=== PATIENT | female | born 1950 | race African-American/Black ===

== ENCOUNTER 2018-05-20 22:21 | Inpatient (IN) ==
[2018-05-20] MEDS ORDERED: NS 1,000 ML ONE (23:37)
[2018-05-20] MEDS ORDERED: NS 1,000 ML IV ONE (23:44)
[2018-05-20] MEDS ORDERED: NARCAN IV ONE ×2 (23:56→23:58)
[2018-05-21] MEDS ORDERED: LEVOPHED 8 MG in D5 1/2 NS 250 ML IV SCH (01:15)
[2018-05-21 01:40] LABS: BASO# 0.02 X1000 (0.0-0.2); BASO% 0.2 % (0.0-0.8); EOS# 0.18 X1000 (0.0-0.7); EOS% 1.5 % (0.0-10.0); HEMATOCRIT 31.2 % (37.0-47.0); HEMOGLOBIN 10.1 g/dL (12.0-16.0); IMM GRAN# 0.11 X1000 (0.0-0.04); IMM GRAN% 0.9 % (0.0-0.5); LYMPH# 1.45 X1000 (1.2-3.4); LYMPH% 11.8 % (20.5-51.1); MCH 31.9 PG (27-31); MCHC 32.4 g/dL (33-37); MCV 98.4 FL (81-99); MONO# 0.69 X1000 (0.11-0.59); MONO% 5.6 % (1.7-9.3); MPV 11.3 FL (7.4-10.4); NEUT# 9.87 X1000 (1.4-6.5); PLT 154 X1000 (130-400); RBC 3.17 XMIL (4.2-5.4); RDW 14.4 % (11.5-14.5); WBC 12.32 X1000 (4.8-10.8)
--- NOTE | 2018-05-21 01:50 | PROVIDER DOCUMENTATION ---
HPI-Neurological Disorder - General Chief Complaint: Altered Mental Status Stated Complaint: ams Time Seen by Provider: 05/20/18 22:36 Allergies/Adverse Reactions: Patient Allergies Allergy/AdvReac Type Severity Reaction Status Date / Time No Known Allergies Allergy Verified 05/21/18 04:30 Home Medications: Home Medication List Medication Instructions Recorded Confirmed Last Taken Type Unobtainable [Home Meds 05/21/18 05/21/18 Unknown History Unobtainable] - History of Present Illness-Neuro Nature of Presenting Problem: HPI: Pt reports by EMS for AMS. She has a PMH of ESRD on HD , she was scheduled to have her peritoneal dialysis port changed 05/21/18. Her boyfriend states that she was acting normally today this am, he came home from work and she was acting normally, he went to sleep and when he woke up she was acting strangely, did not know her and was having AMS. Severity: reports: moderate Onset/Duration: reports: this afternoon Approximate time patient was last seen normal?: 22:00 Character of Altered Mental Status: reports: disoriented, confused, combative Any recent trauma/injury?: reports: none Character of Deficits: reports: altered sensation. denies: new weakness, impaired swallowing New weakness or altered sensation location:: reports: none Cognitive Baseline: poor alertness Associated Symptoms: reports: denies symptoms Similar Symptoms Previously?: No Recently seen or treated by another doctor?: No Review of Systems - Adult - REVIEW OF SYSTEMS - ADULT Constitutional: reports: no symptoms reported Eyes: reports: no symptoms reported Ears, Nose, Mouth & Throat: reports: no symptoms reported Cardiovascular: reports: no symptoms reported Respiratory: reports: no symptoms reported Gastrointestinal: reports: no symptoms reported Genitourinary: reports: no symptoms reported Musculoskeletal: reports: no symptoms reported Integumentary: reports: no symptoms reported Neurological: reports: see HPI Psychiatric: reports: no symptoms reported Endocrine: reports: no symptoms reported Hematologic/Lymphatic: reports: no symptoms reported Allergic/Immunologic: reports: no symptoms reported All Other Systems: Reviewed and Negative Past History - Adult - PAST MEDICAL HISTORY-ADULT Review of Records: reports: Old Records Reviewed, Nursing Assessment Review, Medications Reviewed, Social history reviewed & non-contributory. Major Childhood Illnesses: reports: denies history Cardiovascular: reports: A-Fib, CHF, HTN Respiratory: reports: COPD, pneumonia (HIV related) Gastrointestinal: reports: denies history Obstetrical/Gynecological: reports: denies history Genitourinary: reports: dialysis, kidney disease Musculoskeletal: reports: chronic pain Neurological: reports: denies history Endocrine/Immune: reports: HIV/AIDS Other Conditions: reports: denies history - PRIOR SURGERIES/PROCEDURES Surgical/Procedure History: reports: appendectomy, indwelling device (vasc dialysis), bowel surgery - IMMUNIZATION STATUS Childhood Immunizations: See Nurse Assessment Flu Vaccine: See Nurse Assessment - FAMILY HISTORY Family History: reviewed, not pertinent Physical Exam- Neurological - Physical Exam-Neuro Initial Vital Signs Reviewed: Yes General Appearance: lethargic, slow to respond Eye Exam: left eye: PERRL HENMT: moist mucous membranes Head Injury: no evidence of injury Neck: full range of motion Respiratory: chest non-tender, lungs clear, normal breath sounds. negative: crackles, rales, rhonchi Cardiovascular: normal peripheral pulses, tachycardia. 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 Exam: other (unable to cooperate with neuro exam) Coordination/Gait: other (unable to cooperate with neuro exam) Motor/Sensory: other (unable to cooperate with neuro exam) Neurologic: other (unable to cooperate with neuro exam) Integumentary: normal turgor, warm/dry Psych/Mental Status: disoriented x 3 - Glascow Coma Scale Best Eye Response: (3) open to voice Best Verbal Response: (4) confused conversation Best Motor Response: (5) localizes to pain (11) Progress - PLAN OF CARE/RESULTS Progress/Plan/Lab Results: Laboratory Results - last 24 hr 05/20/18 05/20/18 05/20/18 22:26 23:30 23:30 WBC 12.32 H RBC 3.17 L Hgb 10.1 L Hct 31.2 L MCV 98.4 MCH 31.9 H MCHC 32.4 L RDW Std Deviation 14.4 Plt Count 154 MPV 11.3 H Immature Gran % (Auto) 0.9 H Neut % (Auto) 80.0 H Lymph % (Auto) 11.[address] [place] % (Auto) 5.6 Eos % (Auto) 1.5 Baso % (Auto) 0.2 Immature Gran # (Auto) 0.11 H Neut # (Auto) 9.87 H Lymph # (Auto) 1.45 [facility] # (Auto) 0.69 H Eos # (Auto) 0.18 Baso # (Auto) 0.02 Sodium 130 L Potassium 4.2 Chloride 86 L Carbon Dioxide 19 L Anion Gap 25 BUN 54 H Creatinine 8.0 H Estimated GFR/1.73 m2 6 BUN/Creatinine Ratio 7 Glucose 44 L POC Glucose 500 H Calculated Osmolality 273 Calcium 8.6 L Magnesium Total Bilirubin 0.72 AST 33 H ALT 19 Alkaline Phosphatase 111 H Ammonia Total Protein 6.7 Albumin 1.6 L Globulin 5.1 Albumin/Globulin Ratio 0.3 Plasma Lactate Blood Type Confirm 05/20/18 05/20/18 05/20/18 23:30 23:30 23:30 WBC RBC Hgb Hct MCV MCH MCHC RDW Std Deviation Plt Count MPV Immature Gran % (Auto) Neut % (Auto) Lymph % (Auto) [facility] % (Auto) Eos % (Auto) Baso % (Auto) Immature Gran # (Auto) Neut # (Auto) Lymph # (Auto) [facility] # (Auto) Eos # (Auto) Baso # (Auto) Sodium Potassium Chloride Carbon Dioxide Anion Gap BUN Creatinine Estimated GFR/1.73 m2 BUN/Creatinine Ratio Glucose POC Glucose Calculated Osmolality Calcium Magnesium 1.7 Total Bilirubin AST ALT Alkaline Phosphatase Ammonia Total Protein Albumin Globulin Albumin/Globulin Ratio Plasma Lactate 8.7 H Blood Type Confirm A POSITIVE 05/20/18 05/21/18 23:40 00:20 WBC RBC Hgb Hct MCV MCH MCHC RDW Std Deviation Plt Count MPV Immature Gran % (Auto) Neut % (Auto) Lymph % (Auto) [facility] % (Auto) Eos % (Auto) Baso % (Auto) Immature Gran # (Auto) Neut # (Auto) Lymph # (Auto) [facility] # (Auto) Eos # (Auto) Baso # (Auto) Sodium Potassium Chloride Carbon Dioxide Anion Gap BUN Creatinine Estimated GFR/1.73 m2 BUN/Creatinine Ratio Glucose POC Glucose 234 H D Calculated Osmolality Calcium Magnesium Total Bilirubin AST ALT Alkaline Phosphatase Ammonia 59 H Total Protein Albumin Globulin Albumin/Globulin Ratio Plasma Lactate Blood Type Confirm Orders Category Date Time Status Admit - [facility] Routine AdmDCTranf 05/21/18 02:35 Active Activity - Strict Bedrest ORDERED Care 05/21/18 02:35 Active Intake and Output-Strict ORDERED Care 05/21/18 02:35 Active Misc. NRSG Communication Order DIRECTED Care 05/21/18 02:39 Completed Nursing- MD Consult Request ROUTINE Care 05/21/18 02:34 Active Nursing- Obtain EKG once Care 05/20/18 23:58 Active Vital Signs Order Q1H Care 05/21/18 02:35 Active Z-Document. for Tele Applied ORDERED Care 05/21/18 02:36 Active Physician/Provider Consults Routine Cons 05/21/18 08:00 Ordered Physician/Provider Consults Routine Cons 05/21/18 08:00 Ordered NPO Diet 05/21/18 02:36 Active CHEST-1 VIEW [RAD] Stat Exams 05/20/18 23:45 Completed AMMONIA [CHEM] Stat Lab 05/21/18 00:20 Completed BASIC METABOLIC PANEL [CHEM] Routine Lab 05/22/18 06:00 Ordered BLOOD CULTURE [BLDCUL] Stat Lab 05/21/18 00:15 Received CBC WITH DIFF [HEME] Routine Lab 05/22/18 06:00 Ordered CBC WITH ELECTRONIC DIFF [HEME] Stat Lab 05/21/18 00:00 Completed COMPREHENSIVE METABOLIC PANEL [CHEM] Stat Lab 05/21/18 00:00 Completed LACTATE, PLASMA [CHEM] Stat Lab 05/21/18 00:00 Completed PROTIME WITH INR [COAG] DAILY Lab 05/21/18 05:15 Completed PROTIME WITH INR [COAG] DAILY Lab 05/22/18 06:00 Ordered PROTIME WITH INR [COAG] DAILY Lab 05/23/18 06:00 Ordered PROTIME WITH INR [COAG] DAILY Lab 05/24/18 06:00 Ordered PROTIME WITH INR [COAG] DAILY Lab 05/25/18 06:00 Ordered TSH Routine Lab 05/21/18 05:15 Completed UA [URINALYSIS W/POSS RFLX CULT] [URINALYSIS] Stat Lab 05/20/18 23:45 Uncollected 0.9% Sodium Chloride Inj [Ns] 1,000 ml Med 05/20/18 23:37 Discontinued .ROUTE As Directed 0.9% Sodium Chloride Inj [Ns] 1,000 ml Med 05/20/18 23:44 Discontinued IV 999 mls/hr Acetaminophen [Tylenol] Med 05/21/18 02:35 Active 650 mg PO Q6H PRN PRN Aspirin EC Med 05/21/18 09:00 Active 81 mg PO DAILY Calcitriol [Rocaltrol] Med 05/21/18 09:00 Active 0.5 microgm PO MoWeFr@0900 Calcium Acetate [Phoslo] Med 05/21/18 07:00 Active 1,334 mg PO TID AC Dextrose 5%-0.45% NaCl Inj [D5 /2 Ns] 250 ml Med 05/21/18 01:15 Active Norepinephrine [Levophed] 8 mg IV As Directed Furosemide [Lasix] Med 05/21/18 09:00 Discontinued 160 mg PO BID Mag Sulf/Vitamin B Comp W-C/Zn [Vicon-C] Med 05/21/18 09:00 Active 1 each PO DAILY Metoprolol [Lopressor] Med 05/21/18 08:00 Active 25 mg PO Q6HR Metoprolol [Lopressor] Med 05/21/18 02:32 Discontinued 5 mg IV NOW ONE Naloxone [Narcan] Med 05/20/18 23:56 Discontinued 0.4 mg IV NOW ONE Naloxone [Narcan] Med 05/20/18 23:58 Discontinued 0.4 mg IV NOW ONE Ondansetron [Zofran] Med 05/21/18 02:35 Active 4 mg IV Q4H PRN PRN Piperacillin/Tazobactam [Zosyn] 2.25 gm Med 05/21/18 02:32 Discontinued 0.9% Sodium Chloride Inj [Ns] 50 ml IV NOW Polyethylene Glycol 3350 [Miralax] Med 05/21/18 02:39 Active 17 gm PO DAILY PRN PRN Sodium Bicarbonate Med 05/21/18 09:00 Active 1,300 mg PO BID Warfarin [Coumadin] Med 05/21/18 21:00 Pending 7.5 mg PO QHS Telemetry [OM.EQ] Routine Oth 05/21/18 02:35 Active EKG [EKG] Routine Ther 05/21/18 08:00 Draft EKG [EKG] Stat Ther 05/21/18 02:52 Draft Transfer/Admit Order [TRANSFER] Routine Transfer 05/21/18 02:39 Completed at 15:39 called to code of patient, reportedly patient began to drop her HR during an EKG and then into asystole, pulseless. Arrived to find pt on venti mask, changed to amu bag with better oxygen delivery and jaw thrust while directing atropine and epi to be given as chest compressions had begun by staff. No pulse by me. Epi at 1540, atropine at 15:42 no pulse at 15:43, has pulse at 15:44 Dr Daniel arrived and pulse noted by him Result Diagrams: 05/21/18 15:48 05/21/18 15:48 - CHANGE OF SHIFT REPORT (ED Provider) Report Given and Care Transferred to:: [facility] Time of Transfer: 01:55 Procedures - INTUBATION Airway Evaluation: Obese Intubation Method: orotracheal Equipment: ETT Tube Size (cm): 7.5 Pretreated with 100% Oxygen?: Yes Breath Sounds after Intubation: equal ETT Primary Tube Confirmation: Capnometry CO2 Change, Direct Visualization, Chest Rise and Fall, Tube placement verified on XRAY, Tube Repositioned, Placement re-confirmed with CXR after reposition Intubation Complications: no complications Vent Settings: See Respiratory Therapy Notes Departure - Departure Date of Disposition Decision: 05/21/18 Time of Disposition Decision: :55 DIAGNOSIS: Altered mental status Disposition: ADMITTED INPATIENT 09 Certified Medical Emergency: Emergent Condition: Fair - Critical Care Note This patient required my direct & personal management of CC.: No Attestation - Physician/ DONNELL Attestation Patient care was provided by Advanced Practice Provider:: No The physician spent face to face time with patient:: Yes Advanced Practice Provider documentation review:: Supervising physician onsite and consulted in the evaluation and care of this patient. The physician did have a face to face encounter with the patient.
[2018-05-21] MEDS ORDERED: LOPRESSOR IV ONE (02:32)
[2018-05-21] MEDS ORDERED: ZOSYN 2.25 GM in NS 50 ML IV ONE (02:32)
[2018-05-21 02:33] LABS: ALB/GLOB RATIO 0.3; ALBUMIN 1.6 g/dL (3.5-5.0); CALCIUM 8.6 mg/dL (8.8-10.2); POTASSIUM 4.2 mmol/L (3.5-5.1); TOTAL BILIRUBIN 0.72 mg/dL (0.20-1.00); TOTAL PROTEIN 6.7 g/dL (6.3-8.3)
[2018-05-21] MEDS ORDERED: ZOFRAN IV PRN (02:35)
[2018-05-21] MEDS ORDERED: TYLENOL PO PRN (02:35)
[2018-05-21] MEDS ORDERED: MIRALAX PO PRN (02:39)
[2018-05-21] MEDS ORDERED: CORDARONE 360 MG/D5W 360 MG/200 ML IV.SOLN IV ONE (05:21)
[2018-05-21] MEDS ORDERED: NS 1,000 ML IV ONE (06:38)
[2018-05-21 07:10] LABS: ALLEN TEST NO; BE -4.1 mmoll (-3.0-3.0); BLOOD TYPE ARTERIAL; HCO3-(ACT) 21.7 mmoll (20.0-26.0); METHB 0.9 % (0.0-1.5); O2(CT) 14.2 mL/dL (15.0-23.0); O2HB 94.8 % (95.0-99.0); PCO2(98.6) 30 mmHg (35-45); PO2(98.6) 77 mmHg (60-100); SAMPLE BLOOD; THB 10.6 g/dL (11.5-17.4); pH(98.6) 7.42 (7.35-7.45)
[2018-05-21 07:11] LABS: MODALITY ROOM AIR
[2018-05-21 07:13] LABS: CHLORIDE 90 mmol/L (98-107); POTASSIUM 3.6 mmol/L (3.5-5.1); SODIUM 130 mmol/L (136-145)
[2018-05-21 07:14] LABS: AGAP 22; BUN 47 mg/dL (8-22); COSMO 284; CREATININE 7.1 mg/dL (0.5-0.9); GLUCOSE 287 mg/dL (70-104); TCO2 18 mmol/L (25-35)
[2018-05-21 07:15] LABS: CALCIUM 7.9 mg/dL (8.8-10.2)
[2018-05-21 07:23] LABS: PROTIME > 120.0 Seconds (11.0-16.0)
--- NOTE | 2018-05-21 07:23 | EKG Report ---
Test Performed on : 05/21/2018 06:42:47 AM Test Reason : chest pain Blood Pressure : / mmHG Vent. Rate : 159 BPM Atrial Rate : 082 BPM P-R Int : 000 ms QRS Dur : 100 ms QT Int : 304 ms P-R-T Axes : 000 075 194 degrees QTc Int : 494 ms Atrial fibrillation. with rapid ventricular response. with premature ventricular or aberrantly conduc cuong complexes. Low voltage QRS Nonspecific ST and T wave abnormality Abnormal ECG When compared with ECG of 21-MAY-2018 06:42, (Unconfirmed) Previous ECG has undetermined rhythm, needs review Unconfirmed Result
[2018-05-21 07:25] LABS: INR > 16.00
--- NOTE | 2018-05-21 07:27 | EKG Report ---
Test Performed on : 05/21/2018 05:57:35 AM Test Reason : VT Blood Pressure : / mmHG Vent. Rate : 173 BPM Atrial Rate : 163 BPM P-R Int : 000 ms QRS Dur : 102 ms QT Int : 282 ms P-R-T Axes : 000 054 200 degrees QTc Int : 478 ms Atrial fibrillation. with rapid ventricular response. Low voltage QRS Nonspecific ST and T wave abnormality Abnormal ECG When compared with ECG of 21-MAY-2018 02:54, (Unconfirmed) No significant change was found Confirmed by Ngoc RENEE, Yusef Kurtz ([id number]) on 05/22/2018 7:05:52 PM
--- NOTE | 2018-05-21 07:27 | EKG Report ---
Test Performed on : 05/21/2018 02:54:04 AM Test Reason : rapid heart rate Blood Pressure : / mmHG Vent. Rate : 153 BPM Atrial Rate : 178 BPM P-R Int : 000 ms QRS Dur : 104 ms QT Int : 338 ms P-R-T Axes : 000 066 173 degrees QTc Int : 539 ms Atrial fibrillation. with rapid ventricular response. with premature ventricular or aberrantly conduc cuong complexes. Low voltage QRS Nonspecific ST and T wave abnormality Abnormal ECG When compared with ECG of 07-APR-2018 20:15, (Unconfirmed) QRS duration has decreased Nonspecific T wave abnormality, improved in Inferior leads Confirmed by Ngoc RENEE, Yusef Kurtz ([id number]) on 05/22/2018 7:01:48 PM
[2018-05-21] MEDS ORDERED: ALBUMIN 25% IV SCH (07:37)
--- NOTE | 2018-05-21 07:38 | Diag Imaging Result Doc PS360 ---
EXAM: CHEST-1 VIEW 05/20/2018 HISTORY: ams TECHNIQUE: AP portable at 1201 COMMENT: There is cardiomegaly. The appearance the chest has not changed significantly since 03/28/2018. IMPRESSION: Stable chest. Electronically signed by Devon Caceres 05/21/2018 7:35 AM
[2018-05-21] MEDS ORDERED: NEO-SYNEPHRINE 50 MG in NS 250 ML IV SCH (07:45)
[2018-05-21] MEDS ORDERED: LOPRESSOR PO SCH (08:00)
[2018-05-21] MEDS ORDERED: VITAMIN K 10 MG in NS 50 ML IV ONE (08:08)
[2018-05-21] MEDS ORDERED: CORDARONE IV ONE (08:35)
[2018-05-21] MEDS ORDERED: ROCALTROL PO SCH (09:00)
[2018-05-21] MEDS ORDERED: ASPIRIN EC PO SCH (09:00)
[2018-05-21] MEDS ORDERED: LASIX PO SCH (09:00)
[2018-05-21] MEDS ORDERED: SODIUM BICARBONATE PO SCH (09:00)
[2018-05-21] MEDS ORDERED: VICON-C PO SCH (09:00)
[2018-05-21 09:18] LABS: INR > 16.00; PROTIME > 120.0 Seconds (11.0-16.0); PTT > 215.0 Seconds (22.3-41.8)
[2018-05-21] MEDS ORDERED: LOPRESSOR IV SCH (09:45)
[2018-05-21] MEDS ORDERED: TAZIDIME 1 GM in NS 50 ML IV ONE (10:08)
[2018-05-21] MEDS ORDERED: VANCOMYCIN IV PER PHARMACY MISC SCH (10:15)
[2018-05-21] MEDS ORDERED: MERREM 500 MG in NS 50 ML IV SCH (10:15)
[2018-05-21 10:21] LABS: BASO# 0.03 X1000 (0.0-0.2); BASO% 0.2 % (0.0-0.8); EOS# 0.12 X1000 (0.0-0.7); EOS% 0.8 % (0.0-10.0); HEMATOCRIT 30.5 % (37.0-47.0); HEMOGLOBIN 9.9 g/dL (12.0-16.0); IMM GRAN# 0.13 X1000 (0.0-0.04); IMM GRAN% 0.9 % (0.0-0.5); LYMPH# 2.18 X1000 (1.2-3.4); LYMPH% 14.4 % (20.5-51.1); MCH 32.2 PG (27-31); MCHC 32.5 g/dL (33-37); MCV 99.3 FL (81-99); MONO# 0.94 X1000 (0.11-0.59); MONO% 6.2 % (1.7-9.3); MPV 11.1 FL (7.4-10.4); NEUT# 11.77 X1000 (1.4-6.5); NEUT% 77.5 % (42.2-75.2); PLT 184 X1000 (130-400); RBC 3.07 XMIL (4.2-5.4); RDW 14.6 % (11.5-14.5); WBC 15.17 X1000 (4.8-10.8)
[2018-05-21] MEDS ORDERED: NS 1,000 ML IV SCH (10:30)
[2018-05-21] MEDS ORDERED: VANCOMYCIN 1 GM/NS 1 GM/250 ML IVPB IV ONE (10:45)
[2018-05-21] MEDS ORDERED: LOPRESSOR IV PRN (10:49)
--- NOTE | 2018-05-21 10:54 | PROGRESS NOTE ---
DATE: 05/21/2018 SUBJECTIVE: This morning, Ms. Nagy refers to be hurting all over including the calf and her abdomen. She got admitted early this morning because of altered mental status and also because she was told that her catheter needed to be changed. Upon reviewing her fluid analysis from the 7th of this month, which was just 2 days ago, she did have a white cell count of 1720, predominantly 95% neutrophils, which would be consistent with peritoneal dialysis related peritonitis. OBJECTIVE: General: Ms. Nagy is a 68-year-old, female. She is in bed. She is not in any cardiopulmonary distress. HEENT: Mucosa is slightly dry. Anicteric. Acyanotic. Neck: Supple. Chest: Good air entry bilaterally. There were no crepitations. No rhonchi. Cardiovascular: Tachycardic. Irregularly irregular. No murmurs, no rubs, no gallops. Abdomen: Soft. It is minimally tender all over. There is rebound tenderness all over the abdominal wall. There is a PD catheter in place. There is a right-sided inguinal central line catheter. Extremities: No pedal edema. [employer] NET OR TRAP: The patient is awake, alert. Follows basic commands. Laboratory Data: WBC is 12.23, hemoglobin is 10.1, platelet count 154,000. Chemistry is also reviewed. Sodium is 130, potassium is 3.6, chloride is 90, bicarb is 18, creatinine is 7.1. Patient's plasma lactate is 5.5. A chest x-ray this morning shows a stable chest. Cardiomegaly appearance has not really changed. Of note, Ms. Nagy was discharged from this hospital on 04/05/2018 after she went into atrial fibrillation with RVR and was cardioverted. EKG this morning still shows atrial fibrillation with rapid ventricular response. Patient is currently on an amiodarone drip. ASSESSMENT: 1. Septic shock, likely due to peritoneal dialysis related peritonitis. I have started the patient on ceftazidime and vancomycin. Pending nephrology, further recommendations on this. 2. Peritoneal dialysis related peritonitis. The patient has been started on antibiotics. I think she would eventually need the peritoneal dialysis catheter removed and transition probably now to hemodialysis. We will defer renal replacement therapy to nephrology. 3. Endstage renal disease. 4. Lactic acidosis secondary to septic shock. We will start the patient on a very gentle hydration until the patient is seen by nephrology. 5. Atrial fibrillation with rapid ventricular response. The patient is in atrial fibrillation. She is currently on amiodarone drip. There is a consult for cardiology to see the patient. I think this is being driven by the ongoing sepsis. 6. Supratherapeutic INR. This is due to Coumadin therapy. The patient is getting 2 units of fresh frozen plasma and we will also give her intravenous 1 time dose of vitamin K and repeat her coagulations later today. PLAN: In general, I think Ms. Nagy is critically sick. She is in septic shock secondary to PD related peritonitis. We started her on IV antibiotics. Blood cultures have been done. We will start her on also low-dose IV fluids and wait on further recommendations from cardiology and nephrology. The patient is ICU hold. Critical time spent is 45 minutes. cc: Alli Mancini MD MTDD
[2018-05-21] MEDS ORDERED: CORDARONE 540 MG in D5W 289.2 ML IV ONE (11:21)
--- NOTE | 2018-05-21 11:24 | GENERAL SURGERY CONSULTATION ---
DATE: 05/21/2018 SUBJECTIVE: The patient was admitted overnight for worsening mental status, abdominal pain, leg pain, and plans for removal of her peritoneal dialysis catheter. It is felt she has spontaneous bacterial peritonitis. She had a paracentesis with fluid analysis 2 days ago showing a white cell count of 1720 with 95% neutrophils. Upon arrival to the ER, she has been quite tachycardic in atrial fibrillation and has been hypotensive as well, now on 1 pressor, potentially requiring 2 pressors, and I am asked to evaluate her for removal of peritoneal dialysis catheter as well as placement of a central line and eventual placement of a tunneled dialysis catheter. PAST MEDICAL HISTORY: End-stage renal disease, heart disease, HIV positive, chronic anemia, arthritis. PAST SURGICAL HISTORY: Laparoscopic peritoneal dialysis catheter placement, hemorrhoidectomy. ALLERGIES: No known drug allergies. FAMILY HISTORY: Heart disease, hypertension, chronic kidney disease. SOCIAL HISTORY: She drinks alcohol occasionally and is a former smoker. HOME MEDICATIONS: Home medications are not available, and the patient cannot tell me at this time. REVIEW OF SYSTEMS: Unobtainable. PHYSICAL EXAMINATION: Vital Signs: Temperature 98.1, pulse 130s to 150s. Blood pressure is systolic 104 to 120s. O2 sat 95% to 96%. Respiratory rate 21 to 26. General: She is awake and alert but confused. HEENT: Normocephalic, atraumatic. Extraocular muscles intact. Pupils equal, round, reactive to light. Sclerae anicteric. Dry mucous membranes. Neck: Supple. No thyromegaly. Cardiovascular: Tachycardic, irregular. Respiratory: Bilateral breath sounds. No work of breathing. Gastrointestinal: Soft. Mildly tender all over. No rebound or guarding. There is no erythema around her dialysis catheter. Extremities: No clubbing, cyanosis, or edema. Skin: Warm and dry. No rash. Lymphatic: No cervical, supraclavicular, or periumbilical lymph nodes appreciated. LABORATORY: White cell count 15,000, hemoglobin 9.9, hematocrit 30, platelet count 184,000. INR greater than 16, PTT greater than 215. pH 7.4, pCO2 of 30, PaO2 of 77, bicarb 21.7, base deficit negative for lactate 3.5. Sodium 130, potassium 3.6, chloride 90, CO2 18, BUN 47, creatinine 7.1, glucose 287, calcium 7.9, ammonia level 59, AST 33, ALT 19, alkaline phosphatase 111, total bilirubin 0.7, plasma lactate 5.5, down from 8.7. IMAGING: Chest x-ray shows cardiomegaly but, otherwise, no infiltrates. ASSESSMENT AND PLAN: A 68-year-old female with spontaneous bacterial peritonitis, atrial fibrillation, tachycardia, hemodynamic instability with hypotension. I will go ahead and place a central line at the bedside now in the right femoral vein. She is going to be getting FFP today to try to correct her INR and, when this is to an acceptable level, we will remove her peritoneal dialysis catheter in the operating room. Future dialysis catheter will be placed as needed. cc: Erick Galicia MD
[2018-05-21] MEDS: PHOSLO PO SCH ×2 (12:15→12:16)
--- NOTE | 2018-05-21 14:28 | CONSULTATION ---
DATE OF CONSULTATION: 05/21/2018 IMPRESSION: 1. Atrial fibrillation with rapid ventricular rate. Developing in setting of sepsis felt to be related to peritonitis related to patient's peritoneal dialysis. 2. Previous atrial fibrillation in the past. 3. Severe nonischemic cardiomyopathy. 4. End-stage renal disease requiring hemodialysis. 5. Mild coronary atherosclerosis by previous coronary angiography. Severe nonischemic cardiomyopathy. 6. End-stage renal disease requiring hemodialysis via peritoneal dialysis. 7. Hypercoagulability, probably related to patient's sepsis. 8. Hypertension. 9. Hyperlipidemia. RECOMMENDATIONS: 1. Continue intravenous amiodarone and provide loading dose. 2. Utilize metoprolol as needed for persistent excess tachycardia. 3. Follow up echocardiography once heart rate better controlled. 4. Treat for sepsis and peritonitis as you are doing. HISTORY: This 68-year-old, -Citizen Of [place] female with past history of previous atrial fibrillation in the past, severe nonischemic cardiomyopathy, end-stage renal disease requiring chronic hemodialysis via peritoneal dialysis and hypertension was admitted with recent abdominal pain and confusion. She has been found to have evidence of peritonitis and sepsis. She was in atrial fibrillation with rapid ventricular rate on presentation and has been started on intravenous amiodarone. She had persistent tachycardia and the summer nanny was consulted. The patient has limited recall of recent symptoms. She presently relates that she is feeling fine. Her family indicates that she complained of abdominal pain and weakness. She is not aware of her atrial fibrillation. There are no palpitations. There has been no angina. In the emergency room, she has received intravenous fluid resuscitation, intravenous amiodarone, and intravenous pressors trying to support her blood pressure, as she was hypotensive. Intravenous amiodarone has been initiated without bolus as well. PAST MEDICAL HISTORY: 1. End-stage renal disease requiring hemodialysis via peritoneal dialysis approach. 2. Severe nonischemic cardiomyopathy. Left ventricular ejection fraction 25%-30% in the past. 3. Previous atrial fibrillation. Patient was in sinus rhythm in February,, in our records. 4. Hypertension. 5. Hyperlipidemia. 6. Previous cerebrovascular accident. 7. Reported human immunodeficiency virus infection. 8. Obesity. PAST SURGICAL HISTORY: Appendectomy and placement of peritoneal dialysis catheter. ALLERGIES: She has no known drug allergies. MEDICATIONS PRIOR TO ADMISSION: As listed. SOCIAL HISTORY: She is and disabled. She does not use alcohol. She does not smoke. FAMILY HISTORY: Negative for premature coronary disease. REVIEW OF SYSTEMS: Pulmonary: Negative. Gastrointestinal: Negative. Constitutional: Noteworthy for weakness but, otherwise, negative. Remainder review of systems negative/noncontributory with 14 total systems reviewed. PHYSICAL EXAMINATION: General: This is a chronically ill-appearing, older -Citizen Of [place] female in no distress. Vital Signs: Blood pressure 80/49 to 103/86. Heart rate 120 and irregular with ECG monitor showing atrial fibrillation. Oxygen saturation 96% on supplemental oxygen. HEENT: Extraocular movements appear intact. Mucous membranes moist. Neck: Supple without jugular venous distention. Chest: Clear to auscultation. Cardiac: Exam reveals an irregular rate and rhythm without appreciable murmur or gallop. Abdomen: Mildly distended and with mild diffuse tenderness but no rebound tenderness. Extremities: Without edema. Neurologic: Exam reveals her to be awake and responsive. She moves all 4 extremities equally well. Speech is fluent. LABORATORY DATA: A white blood cell count of 15.17, hematocrit 30.5, hemoglobin 9.9, platelet count 184,000. ProTime greater than 120. INR greater than 16. PTT greater than 215. Sodium 130, potassium 3.6, chloride 90. Carbon dioxide 18. BUN 47, creatinine 7.1, glucose 287. Pneumonia 59. Lactate 5.5, TSH 4.02. ECG demonstrates atrial fibrillation with rapid ventricular rate and low-voltage QRS. cc: Shivam Diaz MD
[2018-05-21] MEDS ORDERED: D50W SYRINGE IV ONE (14:31)
--- NOTE | 2018-05-21 15:08 | OPERATIVE NOTE ---
PROCEDURE DATE : 05/21/2018 PREOPERATIVE DIAGNOSES: 1. Hypotension. 2. Spontaneous bacterial peritonitis. 3. End-stage renal disease. POSTOP DIAGNOSES: 1. Hypotension. 2. Spontaneous bacterial peritonitis. 3. End-stage renal disease. PROCEDURE: Insertion of femoral central venous catheter. SURGEON: Erick Galicia MD. ESTIMATED BLOOD LOSS: Five mL. COMPLICATIONS: None apparent. TECHNIQUE: The skin was prepped with chlorhexidine. Sterile towels were draped. Under sterile precautions, the skin was anesthetized with lidocaine over the palpable femoral artery and then the femoral vein was accessed medially to the artery. The wire passed through the needle easily. It was dark, nonpulsatile blood. The tract was dilated and a triple lumen central venous catheter was passed over the wire via the Seldinger technique. The wire was removed. The catheter hub was anchored to the skin with silk suture. All ports were flushed with saline. A sterile dressing was applied. There were no apparent complications. cc: Erick Galicia MD
[2018-05-21 15:28] VITALS: BP 141/42
[2018-05-21 15:46] LABS: INR 4.71; PROTIME 47.4 Seconds (11.0-16.0)
[2018-05-21] MEDS ORDERED: NORCURON ONE (15:52)
[2018-05-21] MEDS ORDERED: STERILE WATER INJ. ONE (15:53)
[2018-05-21] MEDS ORDERED: AMIDATE ONE (15:53)
[2018-05-21 16:17] LABS: BASO# 0.05 X1000 (0.0-0.2); BASO% 0.3 % (0.0-0.8); EOS# 0.05 X1000 (0.0-0.7); EOS% 0.3 % (0.0-10.0); HEMATOCRIT 26.4 % (37.0-47.0); HEMOGLOBIN 8.2 g/dL (12.0-16.0); IMM GRAN# 0.37 X1000 (0.0-0.04); IMM GRAN% 2.5 % (0.0-0.5); LYMPH# 2.82 X1000 (1.2-3.4); LYMPH% 19.3 % (20.5-51.1); MCH 32.7 PG (27-31); MCHC 31.1 g/dL (33-37); MCV 105.2 FL (81-99); MONO# 1.04 X1000 (0.11-0.59); MONO% 7.1 % (1.7-9.3); MPV 10.9 FL (7.4-10.4); NEUT% 70.5 % (42.2-75.2); PLT 134 X1000 (130-400); RBC 2.51 XMIL (4.2-5.4); RDW 14.9 % (11.5-14.5); WBC 14.63 X1000 (4.8-10.8)
[2018-05-21] MEDS ORDERED: AMIDATE IV ONE (16:24)
[2018-05-21] MEDS ORDERED: NORCURON IV ONE (16:24)
[2018-05-21 16:29] LABS: ALB/GLOB RATIO 0.6; ALBUMIN 2.4 g/dL (3.5-5.0); CALCIUM 8.1 mg/dL (8.8-10.2); CREATININE 7.5 mg/dL (0.5-0.9); POTASSIUM 5.1 mmol/L (3.5-5.1); TOTAL BILIRUBIN 0.92 mg/dL (0.20-1.00); TOTAL PROTEIN 6.4 g/dL (6.3-8.3)
--- NOTE | 2018-05-21 16:34 | Diag Imaging Result Doc PS360 ---
EXAM: CHEST-PORTABLE 05/21/2018 HISTORY: ETT and NG placement TECHNIQUE: AP portable at 1626 COMMENT: There is an NG tube with its tip below the diaphragm. There is an endotracheal tube with its tip in the right mainstem bronchus orifice. There is cardiomegaly. IMPRESSION: Endotracheal tube in the right mainstem bronchus. Electronically signed by Devon Caceres 05/21/2018 4:32 PM
[2018-05-21] MEDS ORDERED: NS 250 ML ONE (16:43)
[2018-05-21] MEDS ORDERED: XYLOCAINE 1%/EPI 1:100,000 ONE (16:43)
[2018-05-21] MEDS ORDERED: VANCOMYCIN 1 GM/NS 1 GM/250 ML IVPB IV SCH (17:00)
[2018-05-21] MEDS ORDERED: EPINEPHRINE 4 MG in NS 250 ML IV SCH (17:00)
[2018-05-21] MEDS ORDERED: XYLOCAINE 2% VISCOUS ONE ×2 (17:05)
--- NOTE | 2018-05-21 18:05 | Diag Imaging Result Doc PS360 ---
EXAM: CHEST-PORTABLE 05/21/2018 HISTORY: intubated; evaluate ET placement TECHNIQUE: AP portable at 1755 COMMENT: There is an endotracheal tube with its tip at thoracic inlet and an NG tube which passes into the stomach. The inspiration is somewhat suboptimal. The left hemithorax is partially obscured by overlying apparatus. Overall there has been no significant change considering differences in technique. IMPRESSION: Endotracheal tube at the thoracic inlet. Electronically signed by Devon Caceres 05/21/2018 6:03 PM
--- NOTE | 2018-05-21 18:47 | PROGRESS NOTE ---
DATE: 05/21/2018 UPDATE PROGRESS NOTE: I was called around 3:00 to 4:00 this evening that Ms. Nagy had been bradycardic and lost pulse, and they had to give her 1 amp of epinephrine and bicarb. After about than 4 minutes of CPR, they got pulse back. She subsequently was intubated. About an hour later, I was called back to the emergency department again because she had no palpable pulse and she had no blood pressure. When I went down, Ms. Nagy was completely unresponsive to even extremely painful stimulation. Pupils were midpoint in size, maybe around 4 mm, and they were nonreactive. Patient would not track. The ventilator was set at a rate of 16 and the patient was breathing at 16. She did have some heart activity, what looks like sinus with multiple PVCs and some sinus arrhythmias. I did speak with the daughter and the sister who seems to have some medical background. I did explain to them plainly that Ms. Nagy does not seem to have any signs of vitality and that the ventilator is doing all the breathing for her, and that if we did stop the ventilator, her heart would also stop following that. The sister seems to understand the medical situation at hand. However, the daughter is not quite there yet. At the end of our extensive, more than an hour conversation, which I did also talk to the father on the phone, the decision was to keep Ms. Nagy on the ventilator until her heart stops, but they would want her to be DNR level 1 and comfort care measures only. They did not want any more interventions, so she will not get any dialysis line for any renal replacement. If the heart should eventually stop, they do not want us to do CPR and they do not want us to give any medication to prolong the inevitable. From the last time I saw Ms. Nagy, which was 5:40 p.m., and that was when I finished talking with the family members, Ms. Nagy was unresponsive. Her pupils were not reacting to light. She was not tracking. She did not seem to have any bulbar or any cortical function. She was breathing exactly as the ventilator was set. I think once the ventilator is disconnected, Ms. Nagy will be pronounced almost immediately. I did, however, offer the family members to call me any time if they have any questions or any concerns, so I could go down and address them accordingly. cc: Alli Mancini MD [facility]
[2018-05-21] MEDS ORDERED: COUMADIN PO SCH (21:00)
--- NOTE | 2018-05-22 03:12 | NEPHROLOGY CONSULTATION ---
DATE: 05/21/2018 REASON FOR CONSULTATION: Assistance with management, ESRD. HISTORY OF PRESENT ILLNESS: Ms. Nagy is a 68-year-old black female with HIV disease, hypertension, diabetes, CKD 5D. She uses peritoneal dialysis, and had peritonitis. She has been treated with 3rd generation cephalosporin and vancomycin. Despite this, her PD fluid cell count has been worsening, and so she had plans for PD catheter removal today. We tried to arrange for that yesterday, but the patient did not answer her telephone, and was not able to bring herself to the hospital. She came in the emergency room in the evening last evening, and had hypotension, elevated lactate, sepsis. She was treated with empiric broad-spectrum antibiotics, as well as IV fluids. At the time of my arrival, she was awake, alert, had no specific complaints, except that her legs ached. Minimal abdominal discomfort. Denied chills, fever, sweats, night sweats, shortness of breath, etc. PAST MEDICAL HISTORY: As above. HOME MEDICATIONS: Not listed out. ALLERGIES: None. SOCIAL HISTORY: She has a significant other non- male friend, and her sister and mother speak for her. FAMILY HISTORY: Not otherwise obtainable. REVIEW OF SYSTEMS: Not otherwise obtainable. PHYSICAL EXAMINATION: Vital Signs: Blood pressure at the time of my exam 123/90, heart rate 153, atrial fibrillation. Respiratory rate 25. General: Acutely ill woman. Skin: Warm and dry. HEENT: Conjunctivae are pale. Pupils are equal. Oropharynx is clear, moist. Neck: Supple. Neck veins are not distended. Trachea is midline. Heart: Irregular and tachycardic. Lungs: Have equal breath sounds. No crackles. Abdomen: Soft, minimally tender. Diminished bowel sounds. No organomegaly or masses. No drainage on her catheter dressing. Extremities: Have 1+ edema. No clubbing or cyanosis. IMPRESSION: Sepsis, secondary to peritonitis. I have contacted Dr. aGlicia to remove her peritoneal dialysis catheter today. Resuscitation with IV fluids, albumin, fresh frozen plasma. I have added a 2nd vasopressor agent and consulted Dr. Venegas by telephone as well. See orders. cc: Lexa Daniel MD
--- NOTE | 2018-05-22 08:00 | HISTORY AND PHYSICAL ---
PRIMARY CARE PROVIDER: Lexa Daniel. CHIEF COMPLAINT: Altered mental status. HISTORY OF PRESENT ILLNESS: This is a 68-year-old female with a history of end-stage renal disease, who takes peritoneal dialysis. She is supposed to be having her peritoneal dialysis catheter changed. She had an appointment with Dr. Daniel tomorrow. She started having abdominal pain and then altered mental status so she was brought into the emergency room by her . She has a past medical history of atrial fibrillation, systolic heart failure with an ejection fraction of 25 to 30, HIV on antiretroviral therapy, peritonitis and COPD. On arrival, as noted the patient was altered. She became mostly unresponsive. She was given 2 doses of 0.4 mg Narcan. She then became responsive and was back to her baseline. She stated that she had taken her regular dose of pain medicine she feels like but may have taken 1 extra related to her abdominal pain. Laboratory data was obtained which showed a mild elevation in her white blood cell count at 12.32. Her plasma lactate was elevated at 8.7. It was felt that she has spontaneous bacterial peritonitis and will be admitted and started on renally dosed Zosyn at this time. The patient also has an elevated heart rate which appears to be atrial fibrillation rapid ventricular rate. I believe that she takes metoprolol at home. She will receive a 5 mg IV metoprolol push and then we will restart her home medications. She will be placed in the ICU for further evaluation and treatment. PAST MEDICAL HISTORY: See HPI. PREVIOUS SURGICAL HISTORY: Appendectomy and dialysis catheter placement. SOCIAL HISTORY: No tobacco, alcohol or illicit drug use. ALLERGIES: No known drug allergies. HOME MEDICATIONS: A list of home medications has not been compiled. Note that she takes metoprolol 25 mg q.6. However, when asked what home medication she took she stated we would have to ask Dr. Daniel, she has no idea. REVIEW OF SYSTEMS: Fourteen point review of systems conducted with the patient. Pertinent positives listed above in the HPI. All other systems reviewed and found to be negative. PHYSICAL EXAMINATION: VITAL SIGNS: Temperature 98.1, pulse 138, blood pressure 75/50, respirations 20, oxygen saturation 95% on 2 L nasal cannula. GENERAL: A 68-year-old female lying in the ER stretcher. She is very tachycardic and hypotensive. She is able to answer all questions appropriately. She appears chronically ill. HEENT: Head is atraumatic, normocephalic. Pupils equal, round and reactive to light. However, they are miotic. Extraocular eye movement is intact. Sclerae are anicteric. Conjunctiva is mildly pale. Oral mucosa is moist. NECK: Supple. No JVD. No thyromegaly. Trachea is midline. No cervical lymphadenopathy. CARDIAC: S1, S2 appreciated. Irregularly irregular, tachycardic. No gallops. No rubs. LUNGS: Decreased bilaterally. No rhonchi, wheezes, rales. Symmetric rise and fall with respirations. ABDOMEN: Soft, nondistended, diffusely tender to palpation. Dialysis catheter noted. No pulsatile mass or organomegaly. Bowel sounds present all 4 quadrants, hypoactive. EXTREMITIES: Trace edema. One-plus pedal pulses. No clubbing, cyanosis. GENITOURINARY: No bladder distention. Patient is anuric. NEUROLOGICAL: Alert and oriented times 3. Cranial nerves II through XII appear to be grossly intact. LABORATORY DATA: WBC 12.34. Hemoglobin 10.1. Hematocrit 31.2. Platelet count 154. Sodium 130. Potassium 4.2. Chloride 86. Carbon dioxide 19. BUN 54. Creatinine 8. Glucose 234. ASSESSMENT AND PLAN: 1. Suspected spontaneous bacterial peritonitis. We will start patient on renally dosed Zosyn. We will defer vancomycin dosing to Dr. Daniel as the patient is a dialysis patient. We will consult Dr. Galicia for dialysis catheter removal and replacement if necessary. 2. Atrial fibrillation with a rapid ventricular rate. We will give metoprolol 5 mg IV push and then continue patient home 25 mg q.6 hours. 3. Leukocytosis secondary to number 1. 4. Hypotension. Start Bobby-Synephrine. 5. Human immunodeficiency virus. We will continue antivirals once home medications are reconciled. 6. End-stage renal disease with peritoneal dialysis. Consult Dr. Daniel. Further recommendations per patient clinical course. CRITICAL CARE TIME: 30 minutes. Dictated by SUNG Jolly for Kamila Roca MD cc: MD Howard Gastelum CRNP [place] P. Akinsoto, MD
[2018-05-22] MEDS ORDERED: ALBUMIN 25% IV SCH (09:00)
--- NOTE | 2018-05-23 08:28 | DISCHARGE SUMMARY ---
ADMISSION DATE: 05/21/2018 DISCHARGE DATE: 05/21/2018 DATE AND TIME OF : 05/21/2018, 1855 DIAGNOSIS AT THE TIME OF ADMISSION: 1. Suspected peritoneal bacterial peritonitis. 2. Atrial fibrillation with rapid ventricular response. 3. Leukocytosis. 4. Hypotension. 5. Human immunodeficiency virus. 6. Endstage renal disease. DIAGNOSIS AT THE TIME OF : 1. Refractory septic shock. 2. Severe lactic acidosis. 3. Atrial fibrillation with rapid ventricular response. 4. Acute hypoxemic respiratory failure. 5. Peritoneal dialysis-related peritonitis. 6. Supratherapeutic INR, likely due to Coumadin therapy on top of sepsis-induced coagulopathy. 7. Human immunodeficiency virus. 8. Endstage renal disease, on peritoneal dialysis. 9. History of severe nonischemic cardiomyopathy. 10. Previous atrial fibrillation, status post cardioversion. PRESENTING COMPLAINT: Altered mental status. HISTORY OF PRESENTING COMPLAINT: Ms. Nagy is a 68-year-old female who is known to have end-stage renal disease, on peritoneal dialysis, was being followed up on an outpatient basis by Dr. Daniel and was diagnosed with PD-related peritonitis, which was really not improving on antibiotics. She was scheduled to follow up for PD catheter removal. Apparently, they made multiple attempts to contact her, which were futile, so from what I was told by Dr. Daniel, one of his nurses actually went to her house to notify her to come to the hospital. Apparently, Ms. Nagy did not come on time until she was found altered at home by the boyfriend who brought her to the hospital on 05/20/2018. Time seen by first provider in the ER was 6. The patient was evaluated and Hospitalist Service was consulted. The patient was seen initially by Dr. Roca and [employer] SUPERVISOR, Mr. Hernández. The patient was started on medications for sepsis and she was in atrial fibrillation RVR, so was rate controlled. HOSPITAL COURSE: Ms. Nagy spent all the short stay in the hospital in the ER because there was no ICU bed and she was an ICU hold. She was seen by Dr. Daniel and Cardiology, Dr. Diaz, and I personally spoke to both subspecialties directly. Ms. Nagy was in septic shock, was started on Bobby-Synephrine and Levophed, and amiodarone for rate control of her atrial fibrillation. Unfortunately, later on during the day, yesterday in the afternoon, she became bradycardic and lost pulse. So CPR was done for a very short period of time and she needed to be intubated because of acute respiratory failure. I did speak multiple times with the family members. Please refer to the details in my progress note and my 2 progress notes yesterday. Unfortunately, even after the best of care, Ms. Nagy did not respond to adequate medical management. She subsequently demised on 05/21/2018 at 1855. I personally went down there to pronounce the patient and notify the family members, and offered our condolences and our support. cc: Alli Mancini MD
== END 2018-05-21 18:55 | disposition expired | DRG 919 ==
LOC: ED 22:21 → SUATTDRO 05-21 03:13 → EDIPHOLD 05-21 03:13
PROVIDERS: ATTEND Internal Medicine
CPT/HCPCS: 36430; 71010; 71045; 80048; 80053; 80202; 82009; 82140; 82805; 82948; 83605; 83735; 84443; 85025; 85610; 85730; 86850; 86900; 86901; 87040; 92950; 93005; 94002; 94762; 96361; 96365; 96366; 96368; 96375; 96376; 99285; A9270; J0171; J0282; J0713; J2310; J2370; J2543; J3370; J3430; J7030; J7050; J7060; P9017; P9047; XXXXX